=== PATIENT | female | born 1950 | race Hispanic/Latino ===

== ENCOUNTER 2018-03-09 23:14 | Emergency (ER) | payer BC, MEDICARE ==
[2018-03-09 23:26] VITALS: BMI 17.2
[2018-03-09 23:30] VITALS: BP 168/95; PULSE 75; RESP 16; TEMP 97.2; O2SAT 98
[2018-03-09] MEDS ORDERED: Fluorescein 1 mg Ophthalmic Strip ONE (23:52)
--- NOTE | 2018-03-10 00:13 | ED PDOC ---
HPI: Eye Injury/Pain Time Seen by Provider: 03/09/18 23:29 Chief Complaint (Nursing): Eye Problem Past Medical History Vital Signs: Last Vital Signs Temp 97.2 F L 03/09/18 23:26 Pulse 75 03/09/18 23:26 Resp 16 03/09/18 23:26 BP 168/95 H 03/09/18 23:26 Pulse Ox 98 03/09/18 23:26 - Home Medications Home Medications: Ambulatory Orders Medication Instructions Recorded Gentamicin 0.1% 0.1 / TP BID #1 tube 03/10/18 Ketorolac Tromethamine [Acular 1 drop OS TID #1 bottle 03/10/18 0.5%] - Allergies Allergies/Adverse Reactions: Allergies Allergy/AdvReac Type Severity Reaction Status Date / Time No Known Allergies Allergy Verified 03/09/18 23:26 - ECG O2 Sat by Pulse Oximetry: 98 Disposition - Clinical Impression Clinical Impression: Eye pain - Patient ED Disposition Is Patient to be Admitted: No - Disposition Referrals: Bijan Bell MD [Staff Provider] - Disposition: Routine/Home Disposition Time: 00:09 Condition: GOOD Prescriptions: Gentamicin 0.1% 0.1 / TP BID #1 tube Ketorolac Tromethamine [Acular 0.5%] 1 drop OS TID #1 bottle Instructions: Conjunctivitis (Pinkeye)
== END 2018-03-10 00:35 | disposition home or self-care (01) ==
LOC: H.ER 23:14
DX: H10.9 Unspecified conjunctivitis (principal)